=== PATIENT | female | born 1990 | race Caucasian/White ===

== ENCOUNTER 2016-11-05 11:39 | Inpatient (IN) | payer OTHER ==
[2016-11-05] VITALS (11 sets, daily range): BP systolic 116–138; BP diastolic 65–85
[~2016-11-05] VITALS: Ht 162.6 cm; Wt 86.8 kg
[~2016-11-05 11:39] MED LIST: DICYCLOMINE; MOTRIN600 MG PO; MUCINEX D ER T1 EACH PO; SUDAFED 12-HOU120 MG PO; TOPAMAX; TYLENOL EXTRA500 MG PO
[2016-11-05 13:13] LABS: EOSINOPHIL (%) 0.2 % (0-5); HEMATOCRIT 27.6 % (36.0-46.0); IMMATURE GRANULOCYTE (%) 2.3 % (0.0-0.7); IMMATURE GRANULOCYTE COUNT 0.2 K/uL; LYMPHOCYTE COUNT 1.4 K/uL (1.0-2.8); MCH 22.4 PG (29.0-34.0); MCHC 29.3 G/DL (30.0-36.0); MCV 76.2 FL (83-99); MONOCYTE (%) 7.4 % (3-12); MONOCYTE COUNT 0.6 K/uL (0-0.8); NEUTROPHIL (%) 72.6 % (45-76); PLATELET COUNT 209 K/uL (156-360); RBC DIS.WIDTH-CV 15.9 % (11.8-14.6); RBC DIS.WIDTH-SD 43.8 % (39-53); RED BLOOD COUNT 3.62 M/uL (3.80-5.20); WHITE BLOOD COUNT 8.3 K/uL (4.1-10.2)
[2016-11-06] VITALS (27 sets, daily range): BP systolic 107–129; BP diastolic 56–80
[2016-11-07 06:55] VITALS: BP 119/74
[2016-11-07 08:04] LABS: EOSINOPHIL (%) 0.6 % (0-5); EOSINOPHIL COUNT 0.1 K/uL (0-0.3); HEMATOCRIT 23.6 % (36.0-46.0); IMMATURE GRANULOCYTE (%) 1.6 % (0.0-0.7); IMMATURE GRANULOCYTE COUNT 0.2 K/uL; INSTRUMENT ABS NEUTROPHIL CT 7.7 K/uL; LYMPHOCYTE COUNT 1.8 K/uL (1.0-2.8); MCHC 29.7 G/DL (30.0-36.0); MCV 77.4 FL (83-99); MEAN PLAT.VOLUME 11.4 uM^3 (9.5-12.4); MONOCYTE COUNT 0.6 K/uL (0-0.8); NEUTROPHIL (%) 74.4 % (45-76); NEUTROPHIL COUNT 7.7 K/uL (1.8-6.4); PLATELET COUNT 162 K/uL (156-360); RBC DIS.WIDTH-CV 16.3 % (11.8-14.6); RBC DIS.WIDTH-SD 45.7 % (39-53); RED BLOOD COUNT 3.05 M/uL (3.80-5.20); WHITE BLOOD COUNT 10.3 K/uL (4.1-10.2)
[2016-11-07 14:30] VITALS: BP 125/78
[2016-11-07 22:10] VITALS: BP 115/69
[2016-11-08 07:37] VITALS: BP 125/88
[2016-11-08] MEDS ORDERED: IBUPROFEN800 MG PO (10:15)
[2016-11-08] MEDS ORDERED: CAMILA0.35 MG PO (10:15)
[2016-11-08] MEDS ORDERED: FERROUS GLUCON324 MG PO (10:16)
== END 2016-11-08 13:03 | disposition home or self-care (01) | DRG 774 ==
LOC: LDRP-OP 11:39 → 2WEST 11:40 → LDRP-OP 13:47 → 2WEST 11-06 13:29 → LDRP-OP 01-13 08:36
PROVIDERS: Advanced Practice Midwife
PROC: 10E0XZZ Delivery of Products of Conception, External Approach (ICD-10-PCS; principal; 2016-11-06)
PROC: 3E0R3CZ (ICD-10-PCS; principal; 2016-11-06)
PROC: 3E0P7GC Introduction of Other Therapeutic Substance into Female Reproductive, Via Natural or Artificial Opening (ICD-10-PCS; principal; 2016-11-06)
PROC: 00HU33Z Insertion of Infusion Device into Spinal Canal, Percutaneous Approach (ICD-10-PCS; principal; 2016-11-06)
PROC: 0HQ9XZZ Repair Perineum Skin, External Approach (ICD-10-PCS; principal; 2016-11-06)
PROC: 10907ZC Drainage of Amniotic Fluid, Therapeutic from Products of Conception, Via Natural or Artificial Opening (ICD-10-PCS; principal; 2016-11-06)
DX: O99.344 Other mental disorders complicating childbirth (principal); O99.413 Diseases of the circulatory system complicating pregnancy, third trimester; F41.9 Anxiety disorder, unspecified; E66.9 Obesity, unspecified; O70.0 First degree perineal laceration during delivery; I45.6 Pre-excitation syndrome; O99.02 Anemia complicating childbirth; O99.214 Obesity complicating childbirth; Z37.0 Single live birth; Z3A.40 40 weeks gestation of pregnancy
CPT/HCPCS: 85025; C1755; G0378; J2405; J7120

== ENCOUNTER 2017-08-10 23:20 | Emergency (ER) | payer BC ==
[~2017-08-10] VITALS: Ht 162.6 cm; Wt 63.2 kg
[~2017-08-10 23:20] MED LIST changes: +CAMILA0.35 MG PO; +FERROUS GLUCON324 MG PO; +IBUPROFEN800 MG PO
[2017-08-10 23:44] LABS: HEMATOCRIT 38.7 % (36.0-46.0); HEMOGLOBIN 12.6 G/DL (11.9-15.5); MCH 27.9 PG (29.0-34.0); MCHC 32.6 G/DL (30.0-36.0); MCV 85.8 FL (83-99); PLATELET COUNT 183 K/uL (156-360); RBC DIS.WIDTH-CV 13.8 % (11.8-14.6); RBC DIS.WIDTH-SD 43.4 % (39-53); RED BLOOD COUNT 4.51 M/uL (3.80-5.20); WHITE BLOOD COUNT 4.6 K/uL (4.1-10.2)
[2017-08-10 23:52] LABS: CHLORIDE 102 mEq/L (99-109); POTASSIUM 3.8 mEq/L (3.7-5.4); SODIUM 136 mEq/L (136-147)
[2017-08-10 23:53] VITALS: BP 95/67
[2017-08-10 23:54] LABS: GLUCOSE 124 mg/dL (70-99)
[2017-08-10 23:58] LABS: CREATININE 0.9 mg/dL (0.6-1.3); GFR ESTIMATE (CALCULATED) > 59 mL/min/
[2017-08-10 23:59] LABS: UREA NITROGEN (BUN) 12 mg/dL (9-23)
[2017-08-11 00:05] LABS: TROP-I INTERPRETATION NEGATIVE; TROPONIN-I < 0.01 ng/mL (0.0-0.30)
[2017-08-11 00:22] LABS: QUANTITATIVE HCG < 4.0 MIU/ML
== END 2017-08-11 01:20 | disposition home or self-care (01) ==
LOC: EME 23:20
DX: R11.2 Nausea with vomiting, unspecified (principal); R55 Syncope and collapse; R42 Dizziness and giddiness; R07.89 Other chest pain; R10.9 Unspecified abdominal pain
CPT/HCPCS: 71020; 80048; 84484; 84702; 85027; 93005; 99281; 99285; J2405; J7030